=== PATIENT | male | born 1965 | race African-American/Black ===

== ENCOUNTER 2016-08-24 11:30 | Inpatient (IN) | payer OTHER ==
[2016-08-24 11:38] VITALS: BMI 24.9
--- NOTE | 2016-08-24 12:36 | HP ---
COWS - Scale Resting Pulse: 0= OK 80 or Below Sweatin= Chills/Flushing Restless Observation: 0= Sits Still Pupil Size: 0= Normal to Room Light Bone or Joint Aches: 4=Acute Joint/Muscle Pain Runny Nose/ Eye Tearin= Runny Nose/Eyes GI Upset > 30mins: 2= Nausea/Diarrhea Tremor Observation: 2= Slight Tremor Visible Yawning Observation: 2= >3x During Session Anxiety or Irritability: 2=Irritable/Anxious Goose Flesh Skin: 3=Piloerection COWS Score: 18 Admission ROS S - HPI Chief Complaint: I am here to get my life back. Allergies/Adverse Reactions: Allergies Allergy/AdvReac Type Severity Reaction Status Date / Time No Known Allergies Allergy Verified 08/24/16 12:02 History of Present Illness: Pt is a 50yr old male with a history of a heroin dependence seeking detox for treatment. Exam Limitations: No Limitations - Ebola screening Have you traveled outside of the country in the last 21 days: No Have you had contact with anyone from an Ebola affected area: No Have you been sick,other than usual withdrawal symptoms: No Do you have a fever: No - Review of Systems Constitutional: Chills, Diaphoresis, Loss of Appetite, Night Sweats, Weight Stable, Unintentional Wgt. Loss EENT: reports: Tearing, Nose Congestion Respiratory: reports: No Symptoms reported Cardiac: reports: No Symptoms Reported GI: reports: Diarrhea, Poor Fluid Intake : reports: No Symptoms Reported Musculoskeletal: reports: Back Pain, Joint Pain Integumentary: reports: Flushing, Sweating Neuro: reports: Tingling, Tremors Endocrine: reports: Flushing, Intolerance to Cold, Intolerance to Heat Hematology: reports: No Symptoms Reported Psychiatric: reports: Judgement Intact, Mood/Affect Appropiate, Orientated x3, Agitated, Anxious Other Systems: Reviewed and Negative Patient History - Patient Medical History Hx Anemia: No Hx Asthma: Yes Hx Chronic Obstructive Pulmonary Disease (COPD): No Hx Cancer: No Hx Cardiac Disorders: No Hx Congestive Heart Failure: No Hx Hypertension: Yes (on meds.) Hx Hypercholesterolemia: No Hx Pacemaker: No HX Cerebrovascular Accident: No Hx Seizures: No Hx Dementia: No Hx Diabetes: No Hx Gastrointestinal Disorders: No Hx Liver Disease: No Hx Genitourinary Disorders: No Hx Sexually Transmitted Disorders: No Hx Renal Disease (ESRD): No Hx Thyroid Disease: No Hx Human Immunodeficiency Virus (HIV): No (negative ) Hx Hepatitis C: Yes Hx Depression: Yes Hx Suicide Attempt: Yes (tried to OD with pills 1988; no desire to hurt self today.) Hx Bipolar Disorder: Yes Hx Schizophrenia: Yes - Patient Surgical History Past Surgical History: No - PPD History Previous Implant?: Yes Documented Results: Positive w/o proof Implanted On Prior [facility] Admission?: No PPD to be Administered?: Yes - Reproductive History Patient is a Female of Child Bearing Age (11 -55 yrs old): No - Smoking Cessation Smoking history: Current every day smoker Have you smoked in the past 12 months: Yes Aproximately how many cigarettes per day: 20 Hx Chewing Tobacco Use: No Initiated information on smoking cessation: Yes 'Breaking Loose' booklet given: 08/24/16 - Substance & Tx. History Hx Alcohol Use: No Hx Substance Use: Yes Substance Use Type: Cocaine, Heroin Hx Substance Use Treatment: Yes - Substances Abused Heroin Route: Injection Frequency: Daily Amount used: 10 BAGS Age of first use: 29 Date of Last Use: 08/24/16 Crack Route: Smoking Frequency: Daily Amount used: 10 BAGS Age of first use: 16 Date of Last Use: 08/24/16 Family Disease History - Family Disease History Family History: Denies Admission Physical Exam S - Vital Signs Vital Signs: Vital Signs - 24 hr 08/24/16 11:33 Temperature 96.6 F L Pulse Rate 54 L Respiratory 18 Rate Blood Pressure 150/86 - Physical General Appearance: Yes: Appropriately Dressed, Moderate Distress, Tremorous, Irritable, Sweating, Anxious HEENTM: Yes: Hearing grossly Normal, Nasal Congestion Respiratory: Yes: Lungs Clear, Normal Breath Sounds, No Respiratory Distress Neck: Yes: No masses,lesions,Nodules Breast: Yes: Within Normal Limits Cardiology: Yes: Regular Rhythm, Regular Rate, S1, S2 Abdominal: Yes: Normal Bowel Sounds, Non Tender, Soft Genitourinary: Yes: Within Normal Limits Back: Yes: Normal Inspection Musculoskeletal: Yes: full range of Motion Extremities: Yes: Normal Capillary Refill, Normal Inspection, Non-Tender, Tremors Neurological: Yes: Fully Oriented, Alert, Normal Response Integumentary: Yes: Normal Color, Diaphoresis, Track [place] Lymphatic: Yes: Within Normal Limits - Diagnostic (1) Opioid dependence with withdrawal Current Visit: Yes Status: Chronic (2) Cocaine dependence, uncomplicated Current Visit: Yes Status: Chronic (3) Nicotine dependence Current Visit: Yes Status: Chronic Qualifiers: Nicotine product type: cigarettes Substance use status: uncomplicated Qualified Code(s): F17.210 - Nicotine dependence, cigarettes, uncomplicated (4) Asthma Current Visit: Yes Status: Chronic Qualifiers: Asthma severity: mild intermittent Asthma complication type: uncomplicated Qualified Code(s): J45.20 - Mild intermittent asthma, uncomplicated (5) Hypertension Current Visit: Yes Status: Chronic Qualifiers: Hypertension type: essential hypertension Qualified Code(s): I10 - Essential (primary) hypertension Cleared for Admission [facility] - Detox or Rehab [facility] Level of Care: Medically Managed Detox Regimen/Protocol: Methadone S Breath Alcohol Content Breath Alcohol Content: 0 Urine Drug Screen - Results Drug Screen Negative: No Urine Drug Screen Results: NANCY-Cocaine, OPI-Opiates
[2016-08-24] MEDS ORDERED: MENTHOL/PHENOL 1 EACH UD MM PRN (12:43)
[2016-08-24] MEDS ORDERED: ACETAMINOPHEN 325 MG TABLET (FP) PO PRN (12:43)
[2016-08-24] MEDS ORDERED: guaiFENesin/D-METHORPHAN HB 10 ML UNIT-DOSE CUPS PO PRN (12:43)
[2016-08-24] MEDS ORDERED: LOPERAMIDE HCL 2 MG CAPSULE PO PRN (12:43)
[2016-08-24] MEDS ORDERED: diphenhydrAMINE HCL 50 MG CAPSULE PO PRN (12:43)
[2016-08-24] MEDS ORDERED: MAGNESIUM HYDROX 2400MG/30ML ORAL SUSPENSION 30 ML CUP PO PRN (12:43)
[2016-08-24] MEDS ORDERED: P-EPHED 60MG/TRIPROLIDI 2.5MG TABLET PO PRN (12:43)
[2016-08-24] MEDS ORDERED: MAGNESIUM CITRATE 300 ML BOTTLE PO PRN (12:43)
[2016-08-24] MEDS ORDERED: hydrOXYzine PAMOATE 50 MG CAPSULE (FP) PO PRN (12:43)
[2016-08-24] MEDS ORDERED: IBUPROFEN 400 MG TABLET (FP) PO PRN (12:43)
[2016-08-24] MEDS ORDERED: MAG HYDROX/AL HYDROX/SIMETH 30 ML UNIT-DOSE CUP PO PRN (12:43)
[2016-08-24] MEDS ORDERED: ALBUTEROL SO4 6.7 GM HFA INHALER IH PRN (12:45)
[2016-08-24] MEDS ORDERED: METHADONE HCL 10 MG TABLET (FOR DETOX USE ONLY) PO ONE ×2 (14:05→23:00)
[2016-08-24 14:40] LABS: HIV 1 & 2 AB NEGATIVE; HIV 1 AGp24 NEGATIVE
--- NOTE | 2016-08-24 14:49 | CONSULT ---
[facility] Psychiatric Consult - Data Date of interview: 08/24/16 Admission source: [facility] Identifying data: This is 50 years old male with psyvhiatric hospitalization history, intoxicated with: Opioids, Cocaine and Nicotine Substance Abuse History: Smoking history: Current every day smoker. Have you smoked in the past 12 months: Yes. Aproximately how many cigarettes per day: 20. Hx Chewing Tobacco Use: No. Initiated information on smoking cessation: Yes. 'Breaking Loose' booklet given: 08/24/16. - Substance & Tx. History. Hx Alcohol Use: No. Hx Substance Use: Yes. Substance Use Type: Cocaine, Heroin. Hx Substance Use Treatment: Yes. - Substances Abused. Heroin. Route: Injection. Frequency: Daily. Amount used: 10 BAGS. Age of first use: 29. Date of Last Use: 08/24/16. Crack. Route: Smoking. Frequency: Daily. Amount used: 10 BAGS. Age of first use: 16. Date of Last Use: 08/24/16 Medical History: Asthma, HTN Psychiatric History: pATIENT RPEORTS TO CARRY bIPOLAR DISORDER, REPORTS MOST RECENT PSYCHIATRIC ADMISSION ON [facility] 10YEARS AGO, REPORTS TAKING PRIOR TO ADMISSION:]. Remeron 30mg po qhs. Seroqquel 400mg po bid. Abilify 10mg poqd Physical/Sexual Abuse/Trauma History: Denies Additional Comment: Remeron 30mg po qhs. Seroqquel 400mg po bid. Abilify 10mg poqd Mental Status Exam - Mental Status Exam Alert and Oriented to: Person Cognitive Function: Fair Patient Appearance: Well Groomed Mood: Suspicious, Apprehensive Affect: Mood Congruent Patient Behavior: Cooperative Speech Pattern: Appropriate Voice Loudness: Normal Thought Process: Goal Oriented Thought Disorder: Being Controlled Hallucinations: Denies Suicidal Ideation: Denies Homicidal Ideation: Denies Insight/Judgement: Fair Sleep: Difficulty falling asleep Appetite: Fair Muscle strength/Tone: Normal Gait/Station: Normal Additional Comments: Remeron 30mg po qhs. Seroqquel 400mg po bid. Abilify 10mg poqd Psychiatric Findings - Problem List ([place] 1, 2,3) (1) Cocaine dependence, uncomplicated Current Visit: Yes Status: Chronic (2) Hypertension Current Visit: Yes Status: Chronic Qualifiers: Hypertension type: essential hypertension Qualified Code(s): I10 - Essential (primary) hypertension (3) Nicotine dependence Current Visit: Yes Status: Chronic Qualifiers: Nicotine product type: cigarettes Substance use status: uncomplicated Qualified Code(s): F17.210 - Nicotine dependence, cigarettes, uncomplicated (4) Opioid dependence with withdrawal Current Visit: Yes Status: Chronic (5) Bipolar disorder Current Visit: Yes Status: Acute (6) Drug-induced mood disorder Current Visit: Yes Status: Acute - Initial Treatment Plan Initial Treatment Plan: Remeron 30mg po qhs. Seroqquel 400mg po bid. Abilify 10mg poqd
[2016-08-24] MEDS: diazePAM 5 MG TABLET PO PRN (14:56)
[2016-08-24] MEDS: LISINOPRIL 10 MG TABLET (FP) PO SCH (14:58)
[2016-08-24 18:56] LABS: URINE APPEARANCE CLEAR; URINE BILIRUBIN NEGATIVE (NEGATIVE); URINE BLOOD NEGATIVE (NEGATIVE); URINE COLOR YELLOW; URINE GLUCOSE (UA) NEGATIVE (NEGATIVE); URINE KETONE NEGATIVE (NEGATIVE); URINE LEUK ESTERASE NEGATIVE (NEGATIVE); URINE NITRITE NEGATIVE (NEGATIVE); URINE PROTEIN NEGATIVE (NEGATIVE); URINE UROBILINOGEN 2.0 E.U/dl E.U./dl (0.2-1.0)
[2016-08-24] MEDS: THIAMINE HCL 100 MG TABLET (FP) PO SCH (22:24)
[2016-08-24] MEDS: QUEtiapine FUMARATE 200 MG TABLET PO SCH (22:25)
[2016-08-24] MEDS: MIRTAZAPINE 30 MG TABLET (FP) PO SCH (22:25)
[2016-08-25] MEDS ORDERED: METHADONE HCL 10 MG TABLET (FOR DETOX USE ONLY) PO ONE (10:00)
--- NOTE | 2016-08-25 10:24 | PN ---
[facility] COWS - Scale Resting Pulse: 0= [place] 80 or Below Sweatin=Flushed/Facial Moisture Restless Observation: 0= Sits Still Pupil Size: 0= Normal to Room Light Bone or Joint Aches: 2= Severe Diffuse Aches Runny Nose/ Eye Tearin= Runny Nose/Eyes GI Upset > 30mins: 1= Stomach Cramp Tremor Observation of Outstretched Hands: 2= Slight Tremor Visible Yawning Observation: 2= >3x During Session Anxiety or Irritability: 2=Irritable/Anxious Goose Flesh Skin: 0=Smooth Skin COWS Score: 13 BHS Progress Note (SOAP) Subjective: agitation irritable sweats shakes interrupted sleep Objective: 08/25/16 10:23 Vital Signs Temperature 98.6 F 08/25/16 09:57 Pulse Rate 47 L 08/25/16 09:57 Respiratory Rate 18 08/25/16 09:57 Blood Pressure 135/79 08/25/16 09:57 O2 Sat by Pulse Oximetry (%) Laboratory Tests 08/24/16 08/24/16 12:40 14:00 Urine Color Yellow Urine Appearance Clear Urine pH 5.0 Ur Specific [place] 1.030 Urine Protein Negative Urine Glucose (UA) Negative Urine Ketones Negative Urine Blood Negative Urine Nitrite Negative Urine Bilirubin Negative Urine Urobilinogen 2.0 e.u/dl Ur Leukocyte Esterase Negative HIV 1&2 Antibody Screen Negative HIV P24 Antigen Negative labs pending awake/alert ambulating no acute distress Assessment: 08/25/16 10:24 withdrawal sx Plan: continue detox increase fluids labs pending
[2016-08-25 10:37] LABS: MCH 28.8 pg (25.7-33.7); MCHC 32.6 g/dl (32.0-35.9); MEAN CELL VOLUME 88.5 fl (80-96); MEAN PLT VOLUME 9.2 fl (7.5-11.1); PLATELET COUNT 202 K/MM3 (134-434); RDW 17.3 % (11.9-15.9); WHITE BLOOD COUNT 4.5 K/mm3 (4.0-10.0)
[2016-08-25] MEDS: PRENATAL VITAMINS W/ FOLIC ACID TABLET (FP) PO SCH (10:42)
[2016-08-25] MEDS: ARIPiprazole 10 MG TABLET PO SCH (10:42)
[2016-08-25] MEDS: LISINOPRIL 10 MG TABLET (FP) PO SCH (10:43)
[2016-08-25] MEDS: NICOTINE 21 MG/24 HOURS TOPICAL PATCH TD SCH (10:45)
[2016-08-25 10:54] LABS: ALBUMIN 3.5 g/dl (3.4-5.0); BILIRUBIN,TOTAL 0.2 mg/dL (0.2-1.0); CALCIUM 8.2 mg/dL (8.5-10.1); CREATININE 1.4 mg/dL (0.7-1.3); TOT PROT 6.6 g/dl (6.4-8.2)
[2016-08-25] MEDS: QUEtiapine FUMARATE 200 MG TABLET PO SCH ×2 (11:10→22:36)
[2016-08-25] MEDS ORDERED: PNEUMOCOCCAL 23 VACCINE 0.5 ML VIAL IM ONE (12:00)
[2016-08-25] MEDS ORDERED: PNEUMOC 13-VAL CONJ-DIP CRM/PF 0.5 ML DISP.SYRIN IM ONE (12:00)
[2016-08-25] MEDS: MIRTAZAPINE 30 MG TABLET (FP) PO SCH (22:36)
[2016-08-25] MEDS: diazePAM 5 MG TABLET PO PRN (22:36)
[2016-08-25] MEDS: THIAMINE HCL 100 MG TABLET (FP) PO SCH (22:36)
[2016-08-26] MEDS ORDERED: METHADONE HCL 5 MG TABLET (FOR DETOX USE ONLY) PO ONE (10:00)
[2016-08-26] MEDS: LISINOPRIL 10 MG TABLET (FP) PO SCH (10:24)
[2016-08-26] MEDS: PRENATAL VITAMINS W/ FOLIC ACID TABLET (FP) PO SCH (10:24)
[2016-08-26] MEDS: NICOTINE 21 MG/24 HOURS TOPICAL PATCH TD SCH (10:25)
[2016-08-26] MEDS: diazePAM 5 MG TABLET PO PRN (10:25)
[2016-08-26] MEDS: ARIPiprazole 10 MG TABLET PO SCH (10:25)
[2016-08-26] MEDS: QUEtiapine FUMARATE 200 MG TABLET PO SCH ×2 (10:26→22:26)
[2016-08-26] MEDS: NICOTINE POLACRILEX 2 MG GUM BUC PRN (10:31)
--- NOTE | 2016-08-26 13:44 | PN ---
[facility] COWS - Scale Resting Pulse: 1= [place] 81-100 Sweatin= Chills/Flushing Restless Observation: 1= Difficult to Sit Still Pupil Size: 1= Pupils >than Normal Bone or Joint Aches: 1= Mild Discomfort Runny Nose/ Eye Tearin= Nasal Congestion GI Upset > 30mins: 2= Nausea/Diarrhea Tremor Observation of Outstretched Hands: 1= Tremor [place], Not Seen Yawning Observation: 1= 1-2x During Session Anxiety or Irritability: 2=Irritable/Anxious Goose Flesh Skin: 3=Piloerection COWS Score: 15 BHS Progress Note (SOAP) Subjective: nausea, sweats, interrupted sleep, anxiety, tremors Objective: 08/26/16 13:43 Vital Signs - 24 hr 08/25/16 08/25/16 08/25/16 14:47 17:42 21:51 Temperature 98.1 F 97.9 F 98.8 F Pulse Rate 47 L 64 64 Respiratory 18 16 16 Rate Blood Pressure 132/72 150/84 129/62 08/26/16 08/26/16 08/26/16 00:30 03:30 06:21 Temperature 97.1 F L Pulse Rate 86 Respiratory 16 18 18 Rate Blood Pressure 120/75 08/26/16 09:58 Temperature 97 F L Pulse Rate 51 L Respiratory 18 Rate Blood Pressure 151/91 Laboratory Tests 08/24/16 08/24/16 08/25/16 12:40 14:00 06:15 WBC 4.5 RBC 4.11 Hgb 11.8 Hct 36.4 MCV 88.5 MCHC 32.6 RDW 17.3 H Plt Count 202 MPV 9.2 Sodium Potassium Chloride Carbon Dioxide Anion Gap BUN Creatinine Creat Clearance w eGFR Random Glucose Calcium Total Bilirubin AST ALT Alkaline Phosphatase Total Protein Albumin Urine Color Yellow Urine Appearance Clear Urine pH 5.0 Ur Specific [place] 1.030 Urine Protein Negative Urine Glucose (UA) Negative Urine Ketones Negative Urine Blood Negative Urine Nitrite Negative Urine Bilirubin Negative Urine Urobilinogen 2.0 e.u/dl Ur Leukocyte Esterase Negative RPR Titer HIV 1&2 Antibody Screen Negative HIV P24 Antigen Negative 08/25/16 08/25/16 06:15 06:15 WBC RBC Hgb Hct MCV MCHC RDW Plt Count MPV Sodium 144 Potassium 4.1 Chloride 108 H Carbon Dioxide 30 Anion Gap 6 L BUN 23 H Creatinine 1.4 H Creat Clearance w eGFR 54.09 Random Glucose 122 H Calcium 8.2 L Total Bilirubin 0.2 AST 34 ALT 41 Alkaline Phosphatase 162 H Total Protein 6.6 Albumin 3.5 Urine Color Urine Appearance Urine pH Ur Specific [place] Urine Protein Urine Glucose (UA) Urine Ketones Urine Blood Urine Nitrite Urine Bilirubin Urine Urobilinogen Ur Leukocyte Esterase RPR Titer Nonreactive HIV 1&2 Antibody Screen HIV P24 Antigen elevated BUN/creatinine, ap, glucose Assessment: 08/26/16 13:44 withdrawal sx, dehydration Plan: cont detox, encourage fluids
[2016-08-26] MEDS: THIAMINE HCL 100 MG TABLET (FP) PO SCH (22:26)
[2016-08-26] MEDS: MIRTAZAPINE 30 MG TABLET (FP) PO SCH (22:26)
[2016-08-27] MEDS ORDERED: METHADONE HCL 5 MG TABLET (FOR DETOX USE ONLY) PO ONE (10:00)
--- NOTE | 2016-08-27 10:38 | PN ---
B[facility] Progress Note (SOAP) Subjective: nausea,, sweat, interrupted sleep, anxiety, tremor Objective: 08/27/16 10:36 Vital Signs - 8 hr 08/27/16 06:00 Temperature 97.2 F L Pulse Rate 50 L Respiratory 18 Rate Blood Pressure 117/57 Laboratory Tests 08/24/16 08/24/16 08/25/16 12:40 14:00 06:15 WBC 4.5 RBC 4.11 Hgb 11.8 Hct 36.4 MCV 88.5 MCHC 32.6 RDW 17.3 H Plt Count 202 MPV 9.2 Sodium Potassium Chloride Carbon Dioxide Anion Gap BUN Creatinine Creat Clearance w eGFR Random Glucose Calcium Total Bilirubin AST ALT Alkaline Phosphatase Total Protein Albumin Urine Color Yellow Urine Appearance Clear Urine pH 5.0 Ur Specific [place] 1.030 Urine Protein Negative Urine Glucose (UA) Negative Urine Ketones Negative Urine Blood Negative Urine Nitrite Negative Urine Bilirubin Negative Urine Urobilinogen 2.0 e.u/dl Ur Leukocyte Esterase Negative RPR Titer HIV 1&2 Antibody Screen Negative HIV P24 Antigen Negative 08/25/16 08/25/16 06:15 06:15 WBC RBC Hgb Hct MCV MCHC RDW Plt Count MPV Sodium 144 Potassium 4.1 Chloride 108 H Carbon Dioxide 30 Anion Gap 6 L BUN 23 H Creatinine 1.4 H Creat Clearance w eGFR 54.09 Random Glucose 122 H Calcium 8.2 L Total Bilirubin 0.2 AST 34 ALT 41 Alkaline Phosphatase 162 H Total Protein 6.6 Albumin 3.5 Urine Color Urine Appearance Urine pH Ur Specific [place] Urine Protein Urine Glucose (UA) Urine Ketones Urine Blood Urine Nitrite Urine Bilirubin Urine Urobilinogen Ur Leukocyte Esterase RPR Titer Nonreactive HIV 1&2 Antibody Screen HIV P24 Antigen dehydration Assessment: 08/27/16 10:37 withdrawal sx Plan: cont detox, reviewed bloodwork with patient, given results
[2016-08-27] MEDS: ARIPiprazole 10 MG TABLET PO SCH (10:44)
[2016-08-27] MEDS: NICOTINE POLACRILEX 2 MG GUM BUC PRN (10:44)
[2016-08-27] MEDS: QUEtiapine FUMARATE 200 MG TABLET PO SCH ×2 (10:44→22:09)
[2016-08-27] MEDS: PRENATAL VITAMINS W/ FOLIC ACID TABLET (FP) PO SCH (10:44)
[2016-08-27] MEDS: NICOTINE 21 MG/24 HOURS TOPICAL PATCH TD SCH (10:44)
[2016-08-27] MEDS: diazePAM 5 MG TABLET PO PRN (10:44)
[2016-08-27] MEDS: LISINOPRIL 10 MG TABLET (FP) PO SCH (10:44)
[2016-08-27] MEDS: THIAMINE HCL 100 MG TABLET (FP) PO SCH (22:10)
[2016-08-27] MEDS: MIRTAZAPINE 30 MG TABLET (FP) PO SCH (22:11)
[2016-08-28] MEDS ORDERED: ARIPiprazole 5 MG TABLET (FP) ONE (09:16)
[2016-08-28] MEDS ORDERED: METHADONE HCL 10 MG TABLET (FOR DETOX USE ONLY) PO ONE (10:00)
--- NOTE | 2016-08-28 10:17 | PN ---
BHS Progress Note (SOAP) Subjective: sweats, lbp Objective: 08/28/16 10:14 Vital Signs Temperature 98.2 F 08/28/16 10:10 Pulse Rate 83 08/28/16 10:10 Respiratory Rate 18 08/28/16 10:10 Blood Pressure 163/75 08/28/16 10:10 O2 Sat by Pulse Oximetry (%) Laboratory Tests 08/24/16 08/24/16 08/25/16 12:40 14:00 06:15 WBC 4.5 RBC 4.11 Hgb 11.8 Hct 36.4 MCV 88.5 MCHC 32.6 RDW 17.3 H Plt Count 202 MPV 9.2 Sodium Potassium Chloride Carbon Dioxide Anion Gap BUN Creatinine Creat Clearance w eGFR Random Glucose Calcium Total Bilirubin AST ALT Alkaline Phosphatase Total Protein Albumin Urine Color Yellow Urine Appearance Clear Urine pH 5.0 Ur Specific [place] 1.030 Urine Protein Negative Urine Glucose (UA) Negative Urine Ketones Negative Urine Blood Negative Urine Nitrite Negative Urine Bilirubin Negative Urine Urobilinogen 2.0 e.u/dl Ur Leukocyte Esterase Negative RPR Titer HIV 1&2 Antibody Screen Negative HIV P24 Antigen Negative 08/25/16 08/25/16 06:15 06:15 WBC RBC Hgb Hct MCV MCHC RDW Plt Count MPV Sodium 144 Potassium 4.1 Chloride 108 H Carbon Dioxide 30 Anion Gap 6 L BUN 23 H Creatinine 1.4 H Creat Clearance w eGFR 54.09 Random Glucose 122 H Calcium 8.2 L Total Bilirubin 0.2 AST 34 ALT 41 Alkaline Phosphatase 162 H Total Protein 6.6 Albumin 3.5 Urine Color Urine Appearance Urine pH Ur Specific [place] Urine Protein Urine Glucose (UA) Urine Ketones Urine Blood Urine Nitrite Urine Bilirubin Urine Urobilinogen Ur Leukocyte Esterase RPR Titer Nonreactive HIV 1&2 Antibody Screen HIV P24 Antigen pt aox3 in nad ambulating Assessment: 08/28/16 10:15 withdrawl sx's lbp Plan: cont. detox increase fluids motrin prn d/c in am
[2016-08-28] MEDS: PRENATAL VITAMINS W/ FOLIC ACID TABLET (FP) PO SCH (10:19)
[2016-08-28] MEDS: LISINOPRIL 10 MG TABLET (FP) PO SCH (10:20)
[2016-08-28] MEDS: QUEtiapine FUMARATE 200 MG TABLET PO SCH ×2 (10:20→22:15)
[2016-08-28] MEDS: NICOTINE 21 MG/24 HOURS TOPICAL PATCH TD SCH (10:20)
[2016-08-28] MEDS: ARIPiprazole 10 MG TABLET PO SCH (10:20)
--- NOTE | 2016-08-28 13:02 | EKG ---
Test Reason : Blood Pressure : / mmHG Vent. Rate : 053 BPM Atrial Rate : 053 BPM P-R Int : 136 ms QRS Dur : 104 ms QT Int : 432 ms P-R-T Axes : 058 077 068 degrees QTc Int : 405 ms SINUS BRADYCARDIA OTHERWISE NORMAL ECG NO PREVIOUS ECGS AVAILABLE Confirmed by JULIO CELIS MD ([id number]) on 08/28/2016 1:01:36 PM Referred By: Confirmed By:JULIO CELIS MD
[2016-08-28] MEDS: THIAMINE HCL 100 MG TABLET (FP) PO SCH (22:15)
[2016-08-28] MEDS: MIRTAZAPINE 30 MG TABLET (FP) PO SCH (22:15)
[2016-08-29] MEDS ORDERED: METHADONE HCL 5 MG TABLET (FOR DETOX USE ONLY) PO ONE (06:00)
--- NOTE | 2016-08-29 08:40 | DS ---
[facility] Detox Discharge Summary Admission Date: 08/24/16 Discharge Date: 08/29/16 - History Present History: Cocaine Dependence, Opioid Dependence - Physical Exam Results Vital Signs: Vital Signs Temperature 97.9 F 08/29/16 06:15 Pulse Rate 60 08/29/16 06:15 Respiratory Rate 18 08/29/16 06:15 Blood Pressure 119/80 08/29/16 06:15 O2 Sat by Pulse Oximetry (%) - Treatment Hospital Course: Detox Protocol Followed, Detoxed Safely, Responded well, Discharged Condition Good, Rehab Referral Accepted - Medication Discharge Medications: Ambulatory Orders Albuterol Sulfate Inhaler - [Ventolin Hfa Inhaler -] 2 inh PO Q4H PRN 08/24/16 Aripiprazole [Abilify -] 10 mg PO DAILY 08/24/16 Aripiprazole [Abilify -] 10 mg PO DAILY #30 tablet 08/24/16 Clonazepam [Klonopin] 1 mg PO BID 08/24/16 Lisinopril 10 mg PO DAILY 08/24/16 Mirtazapine [Remeron -] 30 mg PO HS 08/24/16 Mirtazapine [Remeron -] 30 mg PO HS #30 tablet 08/24/16 Quetiapine Fumarate [Seroquel -] 200 mg PO BID #60 tab 08/24/16 Quetiapine Fumarate [Seroquel -] 400 mg PO HS 08/24/16 - Diagnosis (1) Opioid dependence with withdrawal Current Visit: Yes Status: Chronic (2) Cocaine dependence, uncomplicated Current Visit: Yes Status: Chronic (3) Nicotine dependence Current Visit: Yes Status: Chronic Qualifiers: Nicotine product type: cigarettes Substance use status: uncomplicated Qualified Code(s): F17.210 - Nicotine dependence, cigarettes, uncomplicated (4) Asthma Current Visit: Yes Status: Chronic Qualifiers: Asthma severity: mild intermittent Asthma complication type: uncomplicated Qualified Code(s): J45.20 - Mild intermittent asthma, uncomplicated (5) Hypertension Current Visit: Yes Status: Chronic Qualifiers: Hypertension type: essential hypertension Qualified Code(s): I10 - Essential (primary) hypertension - AMA Did Patient Leave Against Medical Advice: No
[2016-08-29] MEDS: LISINOPRIL 10 MG TABLET (FP) PO SCH (09:06)
[2016-08-29] MEDS: ARIPiprazole 10 MG TABLET PO SCH (09:06)
[2016-08-29] MEDS: PRENATAL VITAMINS W/ FOLIC ACID TABLET (FP) PO SCH (09:06)
[2016-08-29] MEDS: QUEtiapine FUMARATE 200 MG TABLET PO SCH (09:06)
[2016-08-29] MEDS: NICOTINE 21 MG/24 HOURS TOPICAL PATCH TD SCH (09:07)
[2016-08-29 09:32] VITALS: BP 134/87; PULSE 90; TEMP 97.2
== END 2016-08-29 09:20 | disposition home or self-care (01) | DRG 773 ==
LOC: YASAS 11:30 → Y6N 13:54
PROVIDERS: ADMIT Internal Medicine Addiction Medicine; ATTEND Internal Medicine Addiction Medicine
PROC: HZ2ZZZZ Detoxification Services for Substance Abuse Treatment (ICD-10-PCS; principal; 2016-08-24)
DX: F11.23 Opioid dependence with withdrawal (principal); F14.20 Cocaine dependence, uncomplicated; F17.210 Nicotine dependence, cigarettes, uncomplicated; F19.24 Other psychoactive substance dependence with psychoactive substance-induced mood disorder; F31.9 Bipolar disorder, unspecified; J45.20 Mild intermittent asthma, uncomplicated; I10 Essential (primary) hypertension; M54.5 Low back pain; E86.0 Dehydration; B18.2 Chronic viral hepatitis C; Z91.5 Personal history of self-harm
CPT/HCPCS: 36415; 71020-TC; 80053; 81003; 85027; 86593; 87389; 90732; 93005; 93010; G0009